=== PATIENT | male | born 1990 | race Caucasian/White ===

== ENCOUNTER 2019-02-11 14:52 | Emergency (ER) | payer BC, OTHER ==
[2019-02-11] MEDS ORDERED: Adacel (T-DAP) 0.5 ML SYRINGE ONE (15:28)
[2019-02-11] MEDS ORDERED: HYDROcodone/Acetaminophen 10/325 mg Tablet ONE (15:28)
--- NOTE | 2019-02-11 15:46 | RAD ---
RIGHT CLAVICLE TWO VIEWS: 02/11/2019 HISTORY: Injury. Trauma. Pain. COMPARISON: None. FINDINGS: There is an obliquely oriented fracture involving the mid shaft of the right clavicle. Distal fractur e fragment demonstrates 1.2 cm of inferior displacement and there is a 1.5 cm degree of overriding at the fracture site. IMPRESSION: Right clavicle fracture. POS: [facility]
--- NOTE | 2019-02-11 15:59 | RAD ---
XR Chest 1 View History: Injury. Comparison: None. Findings: Right midclavicular fracture with 1 cm overriding. No pneumothorax. No effusion. Cardiac si lhouette and mediastinal contours are within normal limits. Impression: Right midclavicular fracture with 1 cm overriding and inferior displacement of distal fra gment.
== END 2019-02-11 16:32 | disposition home or self-care (01) ==
LOC: ERS 14:52
DX: S42.021A Displaced fracture of shaft of right clavicle, initial encounter for closed fracture (principal); F90.9 Attention-deficit hyperactivity disorder, unspecified type; Z79.899 Other long term (current) drug therapy; V29.9XXA Motorcycle rider (driver) (passenger) injured in unspecified traffic accident, initial encounter
CPT/HCPCS: 71045; 90471; 90715